=== PATIENT | female | born 1950 | race Caucasian/White ===

== ENCOUNTER 2019-05-11 06:51 | Inpatient (IN) | payer OTHER, MEDICAID ==
[~2019-05-11] VITALS: Ht 165.1 cm; Wt 83.6 kg
[~2019-05-11 06:51] MED LIST: ASPI-404 PO; CLOP75TA28 PO; CYCL0.05 EACHEYE; FENO1TAB42 PO; GABA300C10 PO; LOSA25TA38 PO; METO25TA5 PO; MONT10TA34 PO; PRAV20TA3 PO
[2019-05-11] MEDS ORDERED: IODIXANOL 320MG/ML 100ML BTL IV ONE ×2 (07:50→08:43)
[2019-05-11] MEDS ORDERED: LIDOCAINE 2%HCL (LOCAL ANESTH.) INJ 20ML MDV ONE (07:50)
[2019-05-11] MEDS ORDERED: ANGIOMAX 250 MG VIAL IV ONE (08:43)
[2019-05-11] MEDS ORDERED: MIDAZOLAM HCL 1MG/1ML-2 ML VIAL ONE (08:43)
[2019-05-11] MEDS ORDERED: SODIUM CHL 0.9% 50 ML ONE (08:43)
[2019-05-11] MEDS ORDERED: fentaNYL CITRATE 100 MCG/2 ML VL ONE (08:43)
[2019-05-11] MEDS ORDERED: ONDANSETRON HCL 4 MG/2 ML VIAL IV PRN (10:00)
[2019-05-11] MEDS: METOPROLOL TARTRATE 25 MG TAB PO SCH ×2 (10:00→22:11)
[2019-05-11] MEDS ORDERED: MORPHINE SULF INJ 2 MG/ML SYRINGE 1ML IV PRN (10:00)
[2019-05-11] MEDS: CLOPIDOGREL BISULFATE 75 MG TAB PO SCH (10:00)
[2019-05-11] MEDS ORDERED: HYDROcodone-ACET 5/325MG TAB PO PRN (10:00)
[2019-05-11] MEDS ORDERED: LOSARTAN POTASSIUM 25 MG TAB PO SCH ×2 (10:00→18:00)
[2019-05-11] MEDS: ASPirin-EC 81 mg tab PO SCH (10:00)
[2019-05-11] MEDS ORDERED: ACETAMINOPHEN 500 MG TAB PO PRN (10:00)
[2019-05-11] MEDS: GABAPENTIN 300 MG CAP PO SCH ×2 (10:00→21:38)
[2019-05-11] MEDS ORDERED: NITROGLYCERIN 0.4 MG SL TAB SL PRN (10:00)
[2019-05-11] MEDS: MONTELUKAST SODIUM 10 MG TAB PO SCH (10:00)
[2019-05-11] MEDS: PRAVASTATIN SODIUM 20 MG TAB PO SCH (10:00)
--- NOTE | 2019-05-11 11:10 | NUR ---
Tele admit from [employer] SALLY JAIME brought to bed 223A following left Cardiac catheterization, after report was received. Patient transferred to unit bed, connected to laboratory monitor #[id number], telemetry reading upon arrival was sinus samuel at 58. Right groin catheterization site assessed, no s/s of any bleeding, redness or swelling. Pedal pulses on affected leg assessed for positive tissue perfusion. Patient instructed on need to notify staff immediately if any pain, burning or wetness to site, and any lower back pain. All questions and concerns addressed, patient verbalized understanding of all education and instruction. Patient was instructed to lie flat until 1140 to prevent bleeding. Bed locked in lowest position, side rails up x2, call light within reach. Will continue to monitor q1hr and PRN for any changes.
[2019-05-11 11:30] VITALS: BP 140/76
--- NOTE | 2019-05-11 11:45 | NUR ---
Groin site assessed Catheterization site assessed, no s/s of bleeding, redness, or swelling. Patient sat up in bed and provided water. No s/s of distress noted.
[2019-05-11] MEDS ORDERED: MULT-927 PO (12:05)
[2019-05-11] MEDS ORDERED: CETI10CA5 PO (12:05)
[2019-05-11] MEDS ORDERED: LUTE40CA PO (12:05)
[2019-05-11] MEDS ORDERED: B-COCAP23 PO (12:05)
[2019-05-11] MEDS ORDERED: B COLIQ OR (12:05)
[2019-05-11] MEDS: SODIUM CHLORIDE 0.9% 1,000 ML IV SCH (12:50)
[2019-05-11 13:17] VITALS: BP 106/66
[2019-05-11] MEDS ORDERED: INFLUENZA QUAD 2019-2020 0.5ml SYRG IM ONE (14:45)
[2019-05-11] MEDS ORDERED: PNEUMOCOCCAL VACC POLYS 25 MCG/0.5 ML VIAL IM ONE (14:45)
[2019-05-11 17:14] VITALS: BP 124/66
--- NOTE | 2019-05-11 18:34 | NUR ---
PATIENT ROUNDS PATIENT RESTING IN BED WATCHING TELEVISION, NO S/S OF DISTRESS OR SOB, NO PAIN NOTED OR REPORTED. DINNER TRAY PROVIDED. WILL ENDORSE CARE TO [employer] ASSOCIATE RN.
--- NOTE | 2019-05-11 19:56 | NUR ---
Opening Shift Note Assumed care of patient, awake and alert. No S/S of distress/SOB or pain. Instructed on POC and to call for assist PRN, will continue to monitor for changes Q1hr and PRN.Right groin dressing still same with old little stained blood, nothing new.
[2019-05-11 22:00] VITALS: BP 129/65
[2019-05-12] MEDS: SODIUM CHLORIDE 0.9% 1,000 ML IV SCH (00:18)
[2019-05-12 05:00] VITALS: BP 133/62
--- NOTE | 2019-05-12 07:24 | NUR ---
Report given to Ede Thomas,patient is resting no distress.
--- NOTE | 2019-05-12 07:30 | NUR ---
Opening Shift Note Assumed care of patient, awake and alert x4. No S/S of distress/SOB, no pain noted or reported. Respirations are even and unlabored on RA. Updated on POC and instructed to call for assistance as needed, patient verbalized understanding. Bed locked in lowest position, call light within reach, side rails up x2. Will continue to monitor for changes Q1hr and PRN.
[2019-05-12 09:00] VITALS: BP 128/74
[2019-05-12] MEDS: METOPROLOL TARTRATE 25 MG TAB PO SCH (09:43)
[2019-05-12] MEDS: MONTELUKAST SODIUM 10 MG TAB PO SCH (09:44)
[2019-05-12] MEDS: CLOPIDOGREL BISULFATE 75 MG TAB PO SCH (09:44)
[2019-05-12] MEDS: PRAVASTATIN SODIUM 20 MG TAB PO SCH (09:44)
[2019-05-12] MEDS: GABAPENTIN 300 MG CAP PO SCH (09:44)
[2019-05-12] MEDS: ASPirin-EC 81 mg tab PO SCH (09:45)
[2019-05-12 10:03] VITALS: BP 128/74
[2019-05-12 12:30] VITALS: BP 121/64
--- NOTE | 2019-05-12 12:50 | NUR ---
Discharge instructions given as ordered. Encourage to follow up PCP and admissions officer as instructed. All questions and concerns addressed. Patient verbalized understanding. Medication reconciliation form completed and copy given to patient. Influenza and pneumococcal vaccines given as ordered, patient tolerated well. IV removed with catheter intact, pressure dressing applied. Telemetry unit returned to ICU. Patient taken to vehicle via wheelchair with all personal belongings, accompanied by staff and family member. No distress noted at time of departure.
== END 2019-05-12 12:50 | disposition home or self-care (01) | DRG 247 ==
LOC: CATH 06:51 → TELE-CENTR 11:13
PROVIDERS: ADMIT Specialist; ATTEND Specialist
PROC: 027034Z Dilation of Coronary Artery, One Artery with Drug-eluting Intraluminal Device, Percutaneous Approach (ICD-10-PCS; principal; 2019-05-11)
PROC: B2101ZZ Fluoroscopy of Single Coronary Artery using Low Osmolar Contrast (ICD-10-PCS; 2019-05-11)
PROC: B41F1ZZ Fluoroscopy of Right Lower Extremity Arteries using Low Osmolar Contrast (ICD-10-PCS; 2019-05-11)
PROC: B240ZZ3 Ultrasonography of Single Coronary Artery, Intravascular (ICD-10-PCS; 2019-05-11)
PROC: 3E02340 Introduction of Influenza Vaccine into Muscle, Percutaneous Approach (ICD-10-PCS; 2019-05-11)
PROC: 3E0234Z Introduction of Serum, Toxoid and Vaccine into Muscle, Percutaneous Approach (ICD-10-PCS; 2019-05-11)
DX: I25.110 Atherosclerotic heart disease of native coronary artery with unstable angina pectoris (principal); I10 Essential (primary) hypertension; I25.2 Old myocardial infarction; I48.91 Unspecified atrial fibrillation; J45.909 Unspecified asthma, uncomplicated; M35.00 Sjogren syndrome, unspecified; Z23 Encounter for immunization
CPT/HCPCS: 75710; 92928; 92978; 93005; 93454; 99152; C1874; G0378; J2250; Q9967

== ENCOUNTER 2019-08-10 12:35 | Emergency (ER) | payer OTHER, MEDICAID ==
[~2019-08-10] VITALS: Ht 162.6 cm; Wt 74.8 kg
[~2019-08-10 12:35] MED LIST changes: +B-COCAP23 PO; +CETI10CA5 PO; +FENO145T27 PO; -FENO1TAB42 PO; +LUTE40CA PO; +MULT-927 PO
[2019-08-10] MEDS ORDERED: PANTOPRAZOLE 40 MG/10 ML VIAL INJ IV STA (12:52)
[2019-08-10] MEDS ORDERED: SODIUM CHLORIDE 0.9% 500 ML IVB ONE (12:52)
[2019-08-10 13:31] LABS: Basophils # (auto) 0 uL; Basophils % (auto) 0.5 % (0.0-2.0); Eosinophils # (auto) 0.1 uL; Eosinophils % (auto) 1.4 % (0.0-7.0); Hematocrit 42.5 % (36.0-46.0); Hemoglobin 14.1 g/dL (12.2-16.2); Lymphocytes % (auto) 26.7 % (10.0-50.0); Mean Corpuscular Hemoglobin 28.3 pg (28.0-32.0); Mean Corpuscular Hgb Conc. 33.1 g/dL (32.0-36.0); Mean Corpuscular Volume 85.4 fL (80.0-100.0); Monocytes # (auto) 0.5 uL; Neutrophils # (auto) 2.3 uL; Neutrophils % (auto) 58.4 % (37.0-80.0); Platelet Count (auto) 176 10^3/uL (140-450); Red Blood Cells 4.98 10^6/uL (4.0-5.20); Red Cell Distribution Width 15.9 % (11.8-14.3); White Blood Cell 3.9 10^3/uL (4.4-10.8)
[2019-08-10 14:03] LABS: Albumin 3.5 g/dL (3.4-5.0); Anion Gap 6 (5-15); Blood Urea Nitrogen 12 mg/dL (7-18); Calcium 8.5 mg/dL (8.5-10.1); Carbon Dioxide 25 mmol/L (21-32); Chloride 107 mmol/L (98-107); Glucose 99 mg/dL (74-106); Lipase 87 U/L (73-393); Potassium 4.1 mmol/L (3.5-5.1); Sodium 138 mmol/L (136-145)
[2019-08-10 14:04] LABS: Alanine Aminotransferase 52 U/L (13-56); Aspartate Aminotransferase 42 U/L (15-37); BUN/Creatinine Ratio 15.8; GFR African American 96 mL/min; GFR Non-African American 80 mL/min
[2019-08-10 14:09] LABS: Alkaline Phosphatase 40 U/L (45-117); Bilirubin, Total 0.6 mg/dL (0.2-1.0); Total Protein 7.3 g/dL (6.4-8.2)
[2019-08-10 15:08] VITALS: BP 159/81
== END 2019-08-10 16:11 | disposition home or self-care (01) ==
LOC: ER 12:35
DX: R10.13 Epigastric pain (principal); R19.7 Diarrhea, unspecified; R11.0 Nausea; I48.91 Unspecified atrial fibrillation; J45.909 Unspecified asthma, uncomplicated; E78.5 Hyperlipidemia, unspecified; I10 Essential (primary) hypertension; I25.2 Old myocardial infarction; Z79.899 Other long term (current) drug therapy; Z88.2 Allergy status to sulfonamides; Z88.1 Allergy status to other antibiotic agents; Z88.8 Allergy status to other drugs, medicaments and biological substances
CPT/HCPCS: 36415; 74176; 80053; 83690; 84484; 85025; 93005; 96361; 96374; 99284; C9113; J7040

== ENCOUNTER 2019-10-01 15:01 | Emergency (ER) | payer OTHER, MEDICAID ==
[~2019-10-01] VITALS: Ht 165.1 cm; Wt 79.4 kg
[2019-10-01 15:10] VITALS: BP 156/78
== END 2019-10-01 16:51 | disposition home or self-care (01) ==
LOC: ER 15:01
DX: H11.31 Conjunctival hemorrhage, right eye (principal); I48.91 Unspecified atrial fibrillation; J45.909 Unspecified asthma, uncomplicated; E78.5 Hyperlipidemia, unspecified; I10 Essential (primary) hypertension; I25.2 Old myocardial infarction; Z90.89 Acquired absence of other organs; Z79.82 Long term (current) use of aspirin; Z79.01 Long term (current) use of anticoagulants; Z79.899 Other long term (current) drug therapy; Z88.2 Allergy status to sulfonamides; Z88.1 Allergy status to other antibiotic agents; Z88.8 Allergy status to other drugs, medicaments and biological substances
CPT/HCPCS: 70450